=== PATIENT | male | born 1960 | race Two or more races ===

== ENCOUNTER 2023-11-06 09:03 | Inpatient (IN) | payer SELFPAY ==
[~2023-11-06] VITALS: Ht 157.5 cm; Wt 89.6 kg
[2023-11-06 10:12] LABS: Chloride 105 mmol/L (98-107); Potassium 4.1 mmol/L (3.5-5.1); Sodium 140 mmol/L (136-145)
[2023-11-06 10:13] LABS: Anion Gap 7 (5-15); Carbon Dioxide 28 mmol/L (20-31)
[2023-11-06 10:14] LABS: Calcium 10.1 mg/dL (8.7-10.4)
[2023-11-06 10:18] LABS: Glucose 91 mg/dL (74-106)
[2023-11-06 10:19] LABS: BUN/Creatinine Ratio 16.2 (10.0-20.0); Blood Urea Nitrogen 17 mg/dL (9-23)
[2023-11-06 10:22] LABS: Basophils # (auto) 0.1 10 ^3/uL (0-0.2); Basophils % (auto) 0.7 % (0.0-2.0); Eosinophils # (auto) 0.2 10 ^3/uL (0-0.8); Eosinophils % (auto) 2.5 % (0.0-7.0); Hematocrit 48.8 % (41.0-53.0); Hemoglobin 16.9 g/dL (13.5-17.5); Lymphocytes # (auto) 2.6 10 ^3/uL (0.4-5.4); Lymphocytes % (auto) 32.4 % (10.0-50.0); Mean Corpuscular Hemoglobin 30.8 pg (28.0-32.0); Mean Corpuscular Hgb Conc. 34.6 g/dL (32.0-36.0); Mean Corpuscular Volume 89.1 fL (80.0-100.0); Monocytes # (auto) 0.6 10 ^3/uL (0-1.3); Monocytes % (auto) 7.9 % (0.0-12.0); Neutrophils # (auto) 4.5 10 ^3/uL (1.6-8.6); Neutrophils % (auto) 56.5 % (37.0-80.0); Nucleated Red Blood Cells % 0.1 %; Platelet Count (auto) 222 10^3/uL (140-450); Red Blood Cells 5.48 10^6/uL (4.5-5.90); Red Cell Distribution Width 14.1 % (11.8-14.3); White Blood Cell 7.9 10^3/uL (4.4-10.8)
[2023-11-06 13:24] LABS: Urine Bacteria None Seen /hpf (None Seen)
[2023-11-06 13:42] LABS: Urine Blood Negative /uL (Negative); Urine Clarity Clear (Clear); Urine Color Yellow (Yellow); Urine Protein, UAD Negative (Negative); Urine Specific Gravity 1.028 (1.001-1.035); Urine Urobilinogen Normal (Negative); Urine WBC 4 /hpf (0 - 3); Urine pH 5.5 (5.0-9.0)
[2023-11-06] MEDS: PANTOPRAZOLE 40 MG TAB PO ONE (14:34)
[2023-11-06] MEDS: predniSONE 20 MG TAB PO ONE (14:35)
[2023-11-06] MEDS: ASPirin 325 MG TAB PO ONE (14:36)
[2023-11-06] MEDS: cloNIDine HCL 0.1 MG TAB PO ONE (14:36)
[2023-11-06] MEDS ORDERED: NITROGLYCERIN 0.4 MG SL TAB SL PRN (15:45)
[2023-11-06 17:02] VITALS: PULSE 75; RESP 16; O2SAT 97
[2023-11-06] MEDS: ATORVASTATIN 20 MG TAB PO SCH (22:09)
[2023-11-06 22:50] VITALS: BP 131/79; PULSE 60; RESP 16; TEMP 97.8; O2SAT 96
[2023-11-07] VITALS (8 sets, daily range): BP systolic 109–156; BP diastolic 70–87; PULSE 58–76; RESP 16–20; TEMP 97.6–99.6; O2SAT 94–97
[2023-11-07] MEDS: ACYCLOVIR 400 MG TAB PO SCH (01:02)
[2023-11-07] MEDS: PANTOPRAZOLE 40 MG TAB PO SCH (06:53)
[2023-11-07 07:06] LABS: RPR Non Reactive (Non Reactive)
[2023-11-07] MEDS: ASPirin 81 mg TAB PO SCH (10:44)
[2023-11-07] MEDS: predniSONE 20 MG TAB PO SCH (10:44)
[2023-11-07] MEDS ORDERED: PRED20TA2 PO ×2 (18:22→19:11)
== END 2023-11-07 20:45 | disposition home or self-care (01) | DRG 74 ==
LOC: ER 09:03 → OVERFLOW 15:52 → WEST WING 22:37
PROVIDERS: ADMIT Nurse Practitioner Family; ATTEND Nurse Practitioner Family
DX: G51.0 Bell's palsy (principal); I10 Essential (primary) hypertension; I16.0 Hypertensive urgency; E66.9 Obesity, unspecified; Z68.36 Body mass index [BMI] 36.0-36.9, adult
CPT/HCPCS: 36415; 70450; 80048; 81001; 82962; 84443; 85025; 86592; 93306; 93886; 97163; 99291; G0378